=== PATIENT | female | born 1975 | race Caucasian/White ===

== ENCOUNTER 2021-12-13 23:16 | Emergency (ER) | payer OTHER ==
[~2021-12-13] VITALS: Ht 167.6 cm; Wt 60.0 kg
[~2021-12-13 23:16] MED LIST: FIORICET PO; NAPROSYN500 MG PO
[2021-12-13 23:30] VITALS: BP 118/69
[2021-12-14 00:21] LABS: IMMATURE GRANULOCYTES 0.2 % (0.0-5.0); MEAN CELL VOLUME 108.6 fL CALC (80.0-100.0); MEAN CORPUSCULAR HGB 35.4 pG CALC (26.0-32.0); MEAN CORPUSCULAR HGB CONC 32.6 g/dL CAL (32.0-36.0); NEUT# 4.39 thou/uL (2.00-7.15); RED BLOOD COUNT 3.96 mill/uL (4.20-5.60); RED CELL DISTRI WIDTH 12.8 % (11.5-15.5)
[2021-12-14 00:37] LABS: ALBUMIN 4.2 g/dL (3.2-5.0); ALKALINE PHOSPHATASE 126 u/l (38-126); BUN 7 mg/dL (7-17); BUN/CREATININE RATIO 12 (12-20 (CALC)); CARBON DIOXIDE 22 mmol/l (22-30); CHLORIDE 102 mmol/l (95-108); CREATININE 0.6 mg/dL (0.5-1.0); ETHYL ALCOHOL 116 mg/dl (0-30); GFR FOR AFR.AMER. > 60 ML/MIN (>=60 (CALC)); GFR OTHER RACES > 60 ML/MIN (>=60 (CALC)); POTASSIUM 3.5 mmol/l (3.5-5.1); TOTAL PROTEIN 7.7 g/dL (6.3-8.2)
[2021-12-14 00:38] LABS: ANION GAP 15 (6-22 (CALC)); BILIRUBIN, TOTAL 0.7 mg/dL (0.0-1.4); SGOT/AST 293 u/l (14-36); SODIUM 135 mmol/l (137-146)
[2021-12-14 03:00] LABS: URINE BILIRUBIN - DIPSTICK NEGATIVE (NEGATIVE); URINE BLOOD DIPSTICK NEGATIVE (NEGATIVE); URINE COLOR YELLOW; URINE GLUCOSE - DIPSTICK NEGATIVE (NEGATIVE); URINE KETONE NEGATIVE (NEGATIVE); URINE LEUK ESTERASE TRACE (NEGATIVE); URINE PROTEIN - DIPSTICK NEGATIVE (NEG-TRACE); URINE SPECIFIC GRAVITY <=1.005; URINE UROBILINOGEN - DIPSTICK 0.2 E.U./dL (0.2)
[2021-12-14 03:01] LABS: URINE NITRITE - DIPSTICK NEGATIVE (Negative)
[2021-12-14 06:21] VITALS: BP 118/69
== END 2021-12-14 06:37 | disposition home or self-care (01) ==
LOC: ED 23:16
PROVIDERS: Family Medicine
DX: S00.83XA Contusion of other part of head, initial encounter (principal); S80.212A Abrasion, left knee, initial encounter; F10.129 Alcohol abuse with intoxication, unspecified; F17.210 Nicotine dependence, cigarettes, uncomplicated; Y04.2XXA Assault by strike against or bumped into by another person, initial encounter; Y90.5 Blood alcohol level of 100-119 mg/100 ml

== ENCOUNTER 2021-12-21 07:51 | Emergency (ER) | payer OTHER ==
[2021-12-21] VITALS (21 sets, daily range): BP systolic 120–147; BP diastolic 67–94
[~2021-12-21] VITALS: Ht 167.6 cm; Wt 60.5 kg
[2021-12-21 09:53] LABS: URINE BILIRUBIN - DIPSTICK NEGATIVE (NEGATIVE); URINE BLOOD DIPSTICK NEGATIVE (NEGATIVE); URINE COLOR YELLOW; URINE GLUCOSE - DIPSTICK NEGATIVE (NEGATIVE); URINE KETONE NEGATIVE (NEGATIVE); URINE LEUK ESTERASE NEGATIVE (NEGATIVE); URINE PROTEIN - DIPSTICK NEGATIVE (NEG-TRACE); URINE SPECIFIC GRAVITY <=1.005; URINE UROBILINOGEN - DIPSTICK 0.2 E.U./dL (0.2)
[2021-12-21 09:56] LABS: HEMATOCRIT 45.1 % (37.0-47.0); HEMOGLOBIN 15.5 g/dl (12.0-16.0); IMMATURE GRANULOCYTES 0.1 % (0.0-5.0); MEAN CELL VOLUME 106.4 fL CALC (80.0-100.0); MEAN CORPUSCULAR HGB 36.6 pG CALC (26.0-32.0); MEAN CORPUSCULAR HGB CONC 34.4 g/dL CAL (32.0-36.0); NEUT# 4.96 thou/uL (2.00-7.15); RED BLOOD COUNT 4.24 mill/uL (4.20-5.60); RED CELL DISTRI WIDTH 12.9 % (11.5-15.5)
[2021-12-21 10:03] LABS: URINE NITRITE - DIPSTICK NEGATIVE (Negative)
[2021-12-21 10:12] LABS: CPK 111 u/l (30-165)
[2021-12-21 10:14] LABS: ALBUMIN 4.7 g/dL (3.2-5.0); ALKALINE PHOSPHATASE 116 u/l (38-126); ANION GAP 16 (6-22 (CALC)); BUN 8 mg/dL (7-17); BUN/CREATININE RATIO 15 (12-20 (CALC)); CARBON DIOXIDE 25 mmol/l (22-30); CHLORIDE 97 mmol/l (95-108); CREATININE 0.5 mg/dL (0.5-1.0); GFR FOR AFR.AMER. > 60 ML/MIN (>=60 (CALC)); GFR OTHER RACES > 60 ML/MIN (>=60 (CALC)); LIPASE 78 u/l (23-300); MAGNESIUM 1.6 mg/dL (1.6-2.3); POTASSIUM 3.4 mmol/l (3.5-5.1); SGOT/AST 358 u/l (14-36); SODIUM 134 mmol/l (137-146); TOTAL PROTEIN 8.6 g/dL (6.3-8.2)
== END 2021-12-21 14:20 | disposition home or self-care (01) ==
LOC: ED 07:51
PROVIDERS: Internal Medicine
DX: M79.10 Myalgia, unspecified site (principal); E87.6 Hypokalemia; E86.0 Dehydration; F17.210 Nicotine dependence, cigarettes, uncomplicated
CPT/HCPCS: J3475

== ENCOUNTER 2022-06-20 05:13 | Emergency (ER) | payer OTHER ==
[~2022-06-20] VITALS: Ht 167.6 cm; Wt 64.0 kg
[2022-06-20] VITALS (14 sets, daily range): BP systolic 105–126; BP diastolic 50–80
[2022-06-20 05:53] LABS: BASO% 0.4 % (0-3); EOS% 3.4 % (0-8); IMMATURE GRANULOCYTES 0.1 % (0.0-5.0); LYMPH% 31.3 % (15-41); MEAN CELL VOLUME 105.4 fL CALC (80.0-100.0); MEAN CORPUSCULAR HGB 34.9 pG CALC (26.0-32.0); MEAN CORPUSCULAR HGB CONC 33.1 g/dL CAL (32.0-36.0); MONO% 9.5 % (2-13); NEUT# 3.73 thou/uL (2.00-7.15); NEUT% 55.3 % (42-76); RED BLOOD COUNT 3.67 mill/uL (4.20-5.60); RED CELL DISTRI WIDTH 12.5 % (11.5-15.5)
[2022-06-20 05:55] LABS: HEMATOCRIT 38.7 % (37.0-47.0); HEMOGLOBIN 12.8 g/dl (12.0-16.0)
[2022-06-20 06:05] LABS: ALBUMIN 4.1 g/dL (3.2-5.0); ALKALINE PHOSPHATASE 111 u/l (38-126); ANION GAP 10 (6-22 (CALC)); BILIRUBIN, TOTAL 0.9 mg/dL (0.02-1.3); BUN 16 mg/dL (7-17); BUN/CREATININE RATIO 36 (12-20 (CALC)); CARBON DIOXIDE 25 mmol/l (22-30); CHLORIDE 103 mmol/l (95-108); CREATININE 0.5 mg/dL (0.5-1.0); GFR FOR AFR.AMER. > 60 ML/MIN (>=60 (CALC)); GFR OTHER RACES > 60 ML/MIN (>=60 (CALC)); SGOT/AST 132 u/l (14-36); SODIUM 135 mmol/l (137-146); TOTAL PROTEIN 7.3 g/dL (6.3-8.2)
[2022-06-20] MEDS ORDERED: K-TAB20 MEQ PO (07:22)
[2022-06-20] MEDS ORDERED: PREDNISONE50 MG PO (09:18)
[2022-06-20] MEDS ORDERED: FLEXERIL5 M1 PO (09:18)
== END 2022-06-20 10:05 | disposition home or self-care (01) ==
LOC: ED 05:13
PROVIDERS: Emergency Medicine
DX: M54.50 Low back pain, unspecified (principal); E87.6 Hypokalemia; E11.9 Type 2 diabetes mellitus without complications; M06.9 Rheumatoid arthritis, unspecified; F41.9 Anxiety disorder, unspecified; F17.200 Nicotine dependence, unspecified, uncomplicated

== ENCOUNTER 2023-10-26 00:14 | Emergency (ER) | payer OTHER ==
[~2023-10-26 00:14] MED LIST changes: +FLEXERIL5 M1 PO; +K-TAB20 MEQ PO; +PREDNISONE50 MG PO
[2023-10-26 00:39] VITALS: BP 129/75
[2023-10-26 00:46] VITALS: BP 133/73
[2023-10-26] MEDS ORDERED: NAPROXEN500 MG PO (06:39)
== END 2023-10-26 00:52 | disposition left against medical advice (07) | DRG 951 ==
LOC: ED 00:14 → LWOBS 00:52
DX: Z53.21 Procedure and treatment not carried out due to patient leaving prior to being seen by health care provider (principal)

== ENCOUNTER 2023-10-26 03:57 | Emergency (ER) | payer OTHER ==
[~2023-10-26] VITALS: Ht 167.6 cm; Wt 68.0 kg
[2023-10-26 06:08] LABS: BASO% 0.4 % (0-3); EOS% 0.2 % (0-8); HEMATOCRIT 40.3 % (37.0-47.0); IMMATURE GRANULOCYTES 0.1 % (0.0-5.0); LYMPH% 22.3 % (15-41); MEAN CELL VOLUME 101.3 fL CALC (80.0-100.0); MEAN CORPUSCULAR HGB 35.2 pG CALC (26.0-32.0); MEAN CORPUSCULAR HGB CONC 34.7 g/dL CAL (32.0-36.0); MONO% 5.7 % (2-13); NEUT# 6.38 thou/uL (2.00-7.15); NEUT% 71.3 % (42-76); RED BLOOD COUNT 3.98 mill/uL (4.20-5.60); RED CELL DISTRI WIDTH 12.2 % (11.5-15.5)
[2023-10-26 06:16] LABS: ALBUMIN 4.6 g/dL (3.2-5.0); CREATININE 0.5 mg/dL (0.5-1.0); POTASSIUM 3.6 mmol/l (3.5-5.1); TOTAL PROTEIN 8.4 g/dL (6.3-8.2)
[2023-10-26 06:22] LABS: BILIRUBIN, TOTAL 1.6 mg/dL (0.02-1.3)
[2023-10-26] MEDS ORDERED: NAPROXEN500 MG PO (06:39)
== END 2023-10-26 07:00 | disposition home or self-care (01) ==
LOC: ED 03:57
PROVIDERS: Family Medicine
DX: F15.10 Other stimulant abuse, uncomplicated (principal); K76.9 Liver disease, unspecified; E11.9 Type 2 diabetes mellitus without complications; M06.9 Rheumatoid arthritis, unspecified; F41.9 Anxiety disorder, unspecified; F17.200 Nicotine dependence, unspecified, uncomplicated; Z20.822 Contact with and (suspected) exposure to COVID-19; Z59.00 Homelessness unspecified

== ENCOUNTER 2024-03-24 02:26 | Emergency (ER) | payer OTHER ==
[~2024-03-24] VITALS: Ht 167.6 cm; Wt 55.0 kg
[~2024-03-24 02:26] MED LIST changes: +IBUPROFEN600 MG PO; +NAPROXEN500 MG PO
[2024-03-24] MEDS ORDERED: SODIUM CHLORIDE 0.9% 1,000 ML IV ONE (02:40)
[2024-03-24 03:08] LABS: BASO% 0.1 % (0-3); EOS% 0.5 % (0-8); HEMATOCRIT 40.1 % (37.0-47.0); HEMOGLOBIN 13.1 g/dl (12.0-16.0); IMMATURE GRANULOCYTES 0.2 % (0.0-5.0); LYMPH% 25.3 % (15-41); MEAN CELL VOLUME 107.2 fL CALC (80.0-100.0); MEAN CORPUSCULAR HGB CONC 32.7 g/dL CAL (32.0-36.0); NEUT# 6.97 thou/uL (2.00-7.15); NEUT% 63.9 % (42-76); RED BLOOD COUNT 3.74 mill/uL (4.20-5.60); RED CELL DISTRI WIDTH 12.6 % (11.5-15.5)
[2024-03-24 03:20] LABS: ALBUMIN 4.7 g/dL (3.2-5.0); ALKALINE PHOSPHATASE 107 u/l (38-126); ANION GAP 16 (6-22 (CALC)); BUN 21 mg/dL (7-17); BUN/CREATININE RATIO 28 (12-20 (CALC)); CARBON DIOXIDE 23 mmol/l (22-30); CHLORIDE 102 mmol/l (95-108); CREATININE 0.8 mg/dL (0.5-1.0); ESTIMATED GFR 91 ML/MIN (>=90 (CALC)); ETHYL ALCOHOL 0 mg/dl (0-30); POTASSIUM 3.3 mmol/l (3.5-5.1); SGOT/AST 168 u/l (14-36); SODIUM 138 mmol/l (137-146); TOTAL PROTEIN 8.3 g/dL (6.3-8.2)
[2024-03-24 03:42] LABS: URINE GLUCOSE - DIPSTICK Negative (NEGATIVE); URINE KETONE 80 mg/dL (NEGATIVE); URINE PH 5.5 (4.5-8.0); URINE PROTEIN - DIPSTICK 30 mg/dL (NEG-TRACE); URINE SPECIFIC GRAVITY >=1.030
[2024-03-24 03:46] LABS: URINE COLOR Dark yellow; URINE LEUK ESTERASE Small (NEGATIVE); URINE NITRITE - DIPSTICK Positive (Negative)
[2024-03-24 03:47] LABS: URINE BLOOD DIPSTICK Negative (NEGATIVE)
[2024-03-24 03:50] LABS: URINE BACTERIA MODERATE hpf; URINE EPITHELIAL CELLS FEW EPI/hpf (0-FEW); URINE YEAST FEW hpf
[2024-03-24 03:53] LABS: BILIRUBIN, TOTAL 1.6 mg/dL (0.02-1.3); MAGNESIUM 1.1 mg/dL (1.6-2.3)
[2024-03-24] MEDS ORDERED: SULFAMETHOXAZOLE W/TRIMETHOPRI 1 COMBO TAB PO ONE (04:25)
[2024-03-24] MEDS ORDERED: MAGNESIUM200 MG PO (04:25)
[2024-03-24] MEDS ORDERED: MAGNESIUM OXIDE 400 MG/TAB PO ONE (04:25)
[2024-03-24] MEDS ORDERED: BACTRIM DS1 TAB PO (04:25)
[2024-03-24 09:18] VITALS: BP 120/74
== END 2024-03-24 09:20 | disposition home or self-care (01) ==
LOC: ED 02:26
PROVIDERS: Family Medicine
DX: F15.10 Other stimulant abuse, uncomplicated (principal); E83.42 Hypomagnesemia; N39.0 Urinary tract infection, site not specified; E11.9 Type 2 diabetes mellitus without complications; M06.9 Rheumatoid arthritis, unspecified; F41.9 Anxiety disorder, unspecified; F17.200 Nicotine dependence, unspecified, uncomplicated; B96.89 Other specified bacterial agents as the cause of diseases classified elsewhere